=== PATIENT | male | born 1955 | race Two or more races ===

== ENCOUNTER 2017-10-15 08:06 | Day surgery (SDC) | payer OTHER | END 2017-10-15 13:45 | disposition home or self-care (01) | LOC: AMB-ENDOS 08:06 | DX: D12.2 Benign neoplasm of ascending colon (principal); D12.5 Benign neoplasm of sigmoid colon; D12.3 Benign neoplasm of transverse colon; K64.1 Second degree hemorrhoids ==

== ENCOUNTER 2018-12-30 06:00 | Day surgery (SDC) | payer OTHER | END 2018-12-30 13:00 | disposition home or self-care (01) | LOC: AMB-ENDOS 06:00 | DX: D12.0 Benign neoplasm of cecum (principal); D12.4 Benign neoplasm of descending colon; K64.1 Second degree hemorrhoids ==